=== PATIENT | male | born 1960 | race Caucasian/White ===

== ENCOUNTER 2018-08-15 06:05 | Day surgery (SDC) | payer BC ==
[2018-08-15] MEDS: CEFAZOLIN 2 GM/50 ML (PMX) 50 ML IVPB (07:00)
[2018-08-15] MEDS ORDERED: BUPIVACAINE 0.25% (MPF) 30 ML INJ (07:14)
[2018-08-15] MEDS: SOD CHLORIDE 0.9% 1,000 ML IV (07:21)
[2018-08-15] MEDS ORDERED: ROCURONIUM 50 MG INJ ×2 (07:39→08:33)
[2018-08-15] MEDS ORDERED: PROPOFOL 20 ML (07:39)
[2018-08-15] MEDS ORDERED: CEFAZOLIN 1 GM INJ (07:39)
[2018-08-15] MEDS ORDERED: MIDAZOLAM 1 MG/ML 2 ML INJ (07:40)
[2018-08-15] MEDS ORDERED: ROPIVACAINE 0.5 % 30 ML VIAL (07:40)
[2018-08-15] MEDS ORDERED: FENTAnyl 50 MCG/ML VIAL (07:40)
[2018-08-15] MEDS ORDERED: MEPERIDINE 25 MG INJ IV (08:00)
[2018-08-15] MEDS ORDERED: FENTAnyl 50 MCG/ML VIAL IV ×3 (08:00)
[2018-08-15] MEDS ORDERED: IPRATROPIUM (NEB) 0.5 MG/2.5 ML AMP HHN (08:00)
[2018-08-15] MEDS ORDERED: OXYCODONE/ACETAMINOPHEN (5/325) TAB PO (08:00)
[2018-08-15] MEDS ORDERED: ALBUTEROL 0.083% (NEB) 2.5 MG/3 ML AMP HHN (08:00)
[2018-08-15] MEDS ORDERED: METOCLOPRAMIDE 10 MG INJ IV (08:00)
[2018-08-15] MEDS ORDERED: LABETALOL HCL 20MG INJ IV (08:00)
[2018-08-15] MEDS ORDERED: ONDANSETRON 4 MG INJ IV (08:00)
[2018-08-15] MEDS ORDERED: EPHEDrine SULFATE 50 MG/5 ML SYG IV (08:00)
[2018-08-15] MEDS ORDERED: DIPHENHYDRAMINE 50 MG INJ IV (08:00)
[2018-08-15] MEDS ORDERED: HYDROmorphONE 1 MG/5 ML IV SYRINGE IV ×2 (08:00)
[2018-08-15] MEDS ORDERED: METOCLOPRAMIDE 10 MG INJ (08:16)
[2018-08-15] MEDS ORDERED: DEXAMETHASONE 4 MG/ML 5 ML INJ (08:16)
[2018-08-15] MEDS ORDERED: KETOROLAC 30 MG INJ (08:16)
[2018-08-15] MEDS ORDERED: SUGAMMADEX SODIUM 200 MG/2 ML VIAL IV (08:16)
[2018-08-15] MEDS ORDERED: ONDANSETRON 4 MG INJ (08:16)
[2018-08-15] MEDS ORDERED: LABETALOL HCL 20MG INJ (08:34)
[2018-08-15] MEDS: hydrALAzine 20 MG INJ IV (08:59)
[2018-08-15] MEDS: HYDROmorphONE 1 MG/5 ML IV SYRINGE IV (09:17)
[2018-08-15] MEDS: HYDROCODONE/APAP (5/325) TAB PO (09:43)
== END 2018-08-15 11:00 | disposition home or self-care (01) ==
LOC: SDS 06:05
DX: K80.20 Calculus of gallbladder without cholecystitis without obstruction (principal); N40.0 Benign prostatic hyperplasia without lower urinary tract symptoms; E78.5 Hyperlipidemia, unspecified; J44.9 Chronic obstructive pulmonary disease, unspecified; I11.0 Hypertensive heart disease with heart failure; I50.9 Heart failure, unspecified; E66.9 Obesity, unspecified; Z68.32 Body mass index [BMI] 32.0-32.9, adult
CPT/HCPCS: 47562; 88304; 93005